=== PATIENT | male | born 1980 | race Hispanic/Latino ===

== ENCOUNTER 2018-07-12 22:06 | Emergency (ER) | payer OTHER ==
[2018-07-12] MEDS ORDERED: SUBLIMAZE IV ONE (22:42)
[2018-07-12] MEDS ORDERED: DILAUDID IV ONE ×2 (22:47→23:41)
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
[2018-07-12] MEDS ORDERED: PERCOCET 5/325 PO ONE (23:17)
[2018-07-12] MEDS ORDERED: HALDOL IV ONE (23:17)
[2018-07-12] MEDS ORDERED: BENADRYL IV ONE (23:17)
[2018-07-12] MEDS ORDERED: TORADOL IV ONE (23:18)
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
[2018-07-13] MEDS ORDERED: DILAUDID IV ONE (02:30)
[2018-07-13 03:17] VITALS: BP 118/74
== END 2018-07-13 03:00 | disposition other institution (70) ==
LOC: ED 22:06
DX: S32.019A Unspecified fracture of first lumbar vertebra, initial encounter for closed fracture (principal); V87.7XXA Person injured in collision between other specified motor vehicles (traffic), initial encounter; Y93.89 Activity, other specified; Y92.488 Other paved roadways as the place of occurrence of the external cause; Y99.8 Other external cause status
CPT/HCPCS: 70450; 71045; 71260; 72125; 72128; 72131; 74177; 96374; 96376; 99291; J1170; Q9967